=== PATIENT | male | born 1950 | race Caucasian/White ===

== ENCOUNTER 2020-03-05 12:19 | Emergency (ER) | payer OTHER ==
[~2020-03-05] VITALS: Ht 160 cm; Wt 63.5 kg
[~2020-03-05 12:19] MED LIST: ASPIRIN81 M2 PO; COUMADIN 2 MG TA2 M1 PO; DILTIAZEM 24HR240 M1 PO; LANOXIN 0.120.125 M2 PO; LEVAQUIN 750 M750 MG PO; MULTIVITAMINS1 EAC7 PO; PREDNISONE 10 M10 M1 PO; PROAIR HFA8.5 GM IH; SYMBICORT160 MCG/4. INH; VITAMIN D1000 UNI1 PO; ZPAK PO
[2020-03-05 14:00] VITALS: BP 135/70
== END 2020-03-05 14:05 | disposition home or self-care (01) ==
LOC: M.ERS 12:19
DX: S61.012A Laceration without foreign body of left thumb without damage to nail, initial encounter (principal); J45.909 Unspecified asthma, uncomplicated; W26.8XXA Contact with other sharp object(s), not elsewhere classified, initial encounter; Y93.89 Activity, other specified; Y92.89 Other specified places as the place of occurrence of the external cause; Y99.8 Other external cause status

== ENCOUNTER 2020-05-15 09:43 | Observation (INO) | payer OTHER ==
[~2020-05-15] VITALS: Ht 157.5 cm; Wt 62.6 kg
[2020-05-15] VITALS (28 sets, daily range): BP systolic 92–143; BP diastolic 55–94
--- NOTE | ~2020-05-15 | EKG ---
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
[~2020-05-15 09:43] MED LIST changes: +ASPIRIN EC81 M1 PO; -ASPIRIN81 M2 PO
[2020-05-15 11:14] LABS: HEMATOCRIT 53.3 % (42.0-52.0); HEMOGLOBIN 18.8 gm/dL (14.0-18.0); MCHC 35.2 g/dL (28.0-37.0); MCV 99.3 fL (80.0-100.0); MPV 8.5 fl. (7.2-11.1); RBC 5.37 mil/uL (4.50-6.00); RDW-CV 14.2 % (10.5-14.5); WBC 8.2 thou/uL (4.0-11.0)
[2020-05-15 11:20] LABS: ANION GAP 12 mmol/L (7-16); BUN 3 mg/dL (7-18); CHLORIDE 100 mmol/L (98-107); CO2 26 mmol/L (21-32); CREATININE 0.7 mg/dL (0.6-1.3); GLUCOSE 82 mg/dL (70-99); POTASSIUM 4.3 mmol/L (3.5-5.1); SODIUM 138 mmol/L (136-145)
[2020-05-15 11:24] LABS: ALBUMIN 3.2 g/dL (3.4-5.0); ALKALINE PHOSPHATASE 127 U/L (46-116); CHOLESTEROL 170 mg/dL (<200); HDL CHOLESTEROL 107 mg/dL (>40); LDL CHOLESTEROL 52 mg/dL (<100); SGOT 26 U/L (15-37); SGPT 28 U/L (30-65); TC:HDL 1.6 Ratio (Not establshd); TOTAL BILIRUBIN 0.7 mg/dL (<0.1-1.0); TOTAL PROTEIN 6.4 g/dL (6.4-8.2); TRIGLYCERIDE 57 mg/dL (<150); VLDL 11 mg/dL (<40)
[2020-05-15 11:28] LABS: SERUM ASSESSMENT Clear
[2020-05-15] MEDS ORDERED: WIXELA 250-501 EACH INH (13:22)
[2020-05-15] MEDS ORDERED: DILTIAZEM ER300 M1 PO (13:29)
[2020-05-15] MEDS ORDERED: XARELTO20 MG PO (13:30)
--- NOTE | 2020-05-15 13:31 | TEE ---
[place] [address] TRANSESOPHAGEAL ECHOCARDIOGRAM Name: TRAVIS JOHNSON rDea Room: [address] FaustoBruce.#: [id number] Admission: 05/15/20 Attend Phys: Rogelio Marin MD Discharge: Date of : 54 Date of Service: 05/15/20 1330 Report #: [id number] THIS REPORT FOR: cc: Mariana Almeida MD, Tuongvan T. MD Blick, David R. MD [facility] ~ APPROVED REPORT Study performed: 05/15/2020 10:18:09 EXAM: Transesophageal Echocardiogram Patient Location: Out-Patient Status: routine BSA: 1.59 HR: 143 bpm BP: 120/83 mmHg Rhythm: Atrial Fibrillation Other Information Study Quality: Good Indications Atrial Fibrillation Echo Enhancing Agent Indication: Rule out Shunt Agent(s) / Amount(s) Used: Agitated Saline 20 cc Procedure After obtaining informed consent, patient underwent transesophageal echo in the [facility]. Type of Sedation : Conscious Sedation Sedation was administered by Maddie Johnston RN. Sedation start time: 1115 Case end Time: 1145 Sedation was achieved intravenously with: Versed (14) Fentanyl (125) Transesophageal probe was inserted and advanced into esophagus without difficulty by Rogelio Marin MD, FACC. Echo enhancement indication: R/O Septal defect. Echo enhancement agent administered: Agitated Saline The SANCHEZ was performed without complications. Synchronized Cardioversion attempted: Successful Synchronized Cardioversion acheived with 200 Joules after 1 attempt(s). [place] [address] TRANSESOPHAGEAL ECHOCARDIOGRAM Name: ELIZABETHXENIALAVINIA Shepard [address]#: [id number] Admission: 05/15/20 Attend Phys: Rogelio Marin MD Discharge: Date of : 54 Date of Service: 05/15/20 1330 Report #: [id number] Rhythm following Synchronized Cardioversion: Normal Sinus Rhythm Throughout the procedure, the blood pressure, pulse oximetry, cardiac rhythm, and rate were monitored. The patient tolerated the procedure without adverse effects. Recovery from conscious sedation was uneventful and vital signs were stable. Left Ventricle The left ventricle is normal size. There is normal LV segmental wall motion. There is normal left ventricular wall thickness. No ventricular septal defect. Left ventricular systolic function is normal. The left ventricular ejection fraction is within the normal range. LVEF is 60-65%. Right Ventricle The right ventricle is normal size. The right ventricular systolic function is normal. Atria The left atrium size is normal. No thrombus is visualized in the left atrium or appendage. Injection of bubbles documented no interatrial shunt. The right atrium size is normal. Aortic Valve The aortic valve is normal in structure. Trace aortic regurgitation. There is no aortic valvular stenosis. Mitral Valve The mitral valve is normal in structure. Mild mitral regurgitation. No evidence of mitral valve stenosis. Tricuspid Valve The tricuspid valve is normal in structure. Mild tricuspid regurgitation. Pulmonic Valve The pulmonary valve is normal in structure. There is no pulmonic valvular regurgitation. Great Vessels The aortic root is normal in size. Atherosclerotic plaque is present in the ascending aorta. Pericardium There is no [place] [address] TRANSESOPHAGEAL ECHOCARDIOGRAM Name: TRAVIS JOHNSON Room: [address] Denys#: [id number] Admission: 05/15/20 Attend Phys: Rogelio Marin MD Discharge: Date of : 54 Date of Service: 05/15/201329 Report #: [id number] <Conclusion> LVEF is 60-65%. The left atrium size is normal. No thrombus is visualized in the left atrium or appendage. Mild mitral regurgitation. Injection of bubbles documented no interatrial shunt. successful cardioversion of atrial flutter to normal sinus rhythm <ELECTRONICALLY SIGNED> By: Rogelio Marin MD, [facility] 05/15/201329 29 1330 Rogelio Marin MD, FACC /INF
[2020-05-15] MEDS ORDERED: VITAMIN C1000 MG PO (13:33)
[2020-05-15] MEDS ORDERED: POTASSIUM99 M1 PO (13:35)
[2020-05-15] MEDS ORDERED: FLECAINIDE ACET50 M2 PO (13:38)
--- NOTE | 2020-05-15 14:16 | EKG ---
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1950 Requested By: Rogelio Marin Order Number: [id number] Reading MD: Rogelio Marin Measurements Intervals [place] Rate: 129 P: [place]: QRS: 92 QRSD: 95 T: 76 QT: 329 QTc: 482 Interpretive Statements Atrial flutter Right axis deviation Borderline prolonged QT interval Compared to ECG 09/13/2012 07:28:03 Right-axis deviation now present alutter now seen Electronically Signed On 05-15-2020 14:16:30 JUNIOR ASSISTANT MANAGER by Rogelio Marin [email or web address] <ELECTRONICALLY SIGNED> By: Rogelio Marin MD, FAC 05/15/20 1416 1031 1031 Rogelio Marin MD, [facility] /EPI
[2020-05-16 00:04] VITALS: BP 126/70
[2020-05-16 04:41] VITALS: BP 122/72
[2020-05-16 08:00] VITALS: BP 143/79
[2020-05-16 12:00] VITALS: BP 143/96
[2020-05-16 13:06] VITALS: BP 143/96
--- NOTE | 2020-05-17 11:49 | D ---
[facility] [address] [place] [address] DISCHARGE SUMMARY Name: TRAVIS JOHNSON Room: [address] Guillermo Mcfarlane#: [id number] Admission: 05/15/20 Attend Phys: Rogelio Marin MD, F Discharge: 05/16/20 Date of : 54 Report #: [id number] THIS REPORT FOR: cc: Mariana Almeida MD, Tuongvan T. MD ~ Roeglio Marin MD [facility] DATE OF SERVICE: 05/16/2020 DISCHARGE DIAGNOSES: 1. Atrial flutter. 2. Previous tobacco abuse. CONSULTANTS: None. PROCEDURES: 1. Transesophageal echocardiogram. 2. Direct current cardioversion of atrial flutter. HISTORY OF PRESENT ILLNESS: The patient is a 70-year-old white male who was brought to the outpatient department to undergo electrical cardioversion. The patient apparently had a previous history of atrial fibrillation in 2012 when he presented with pneumonia. He converted to sinus rhythm, placed on diltiazem. Previous nuclear stress test showed no ischemia. Recently, he went in for routine followup and was noted to be in atrial flutter with 2:1 ventricular response rate. He denies any significant lightheadedness, palpitations, chest pain, shortness of breath, fever. I saw him in the office in 05/09 and recommended he start Xarelto for anticoagulation and flecainide in effort to cardiovert the patient. He was electively admitted on 05/15 for SANCHEZ and cardioversion. He denies recent fever or swelling. PAST MEDICAL HISTORY: Otherwise significant for tonsillectomy. No history of hypertension, diabetes, hyperlipidemia, previous carotid Doppler study showed less than 50% stenosis. MEDICATIONS: On admission include albuterol inhaler as needed for asthma, aspirin was recently stopped, diltiazem CD 300 mg a day, Flonase nasal spray as needed. ALLERGIES: He had no known drug allergies. PHYSICAL EXAMINATION: VITAL SIGNS: On admission, his blood pressure is 120/80, pulse is 140 and irregular. CHEST: Clear to auscultation. CARDIOVASCULAR: Regular, [place] [address] DISCHARGE SUMMARY Name: TRAVIS JOHNSON Drea [address]: [address]#: [id number] Admission: 05/15/20 Attend Phys: Rogelio Marin MD, F Discharge: 05/16/20 Date of : 54 Report #: [id number] ABDOMEN: Soft. EXTREMITIES: Had no edema. SKIN: Cool and dry. IMAGING: His workup on admission, he had a portable chest x-ray showed normal heart size, clear lung gusman. LABORATORY DATA: Sodium 138, creatinine 0.7. Liver function studies were normal. His cholesterol 170, triglycerides 57, HDL of 107, LDL 52. TSH 2.3, T4 of 0.8. White blood cell count 8.2, hemoglobin 18.8. HOSPITAL COURSE: The patient was brought to the cardiac catheterization lab. The patient had taken his dose of flecainide on the day of presentation. The night before he had taken his Xarelto. I performed a SANCHEZ that showed normal left ventricular chamber size and wall motion. There was no evidence of shunt. There was no evidence of thrombus. There is mild mitral and tricuspid regurgitation. I then performed electrical cardioversion with 200 joules. He converted to sinus rhythm. He tolerated the procedure well. The patient was transferred to a monitored bed watched overnight. During the night, the patient actually went into an episode of rapid atrial fibrillation that responded to a dose of IV digoxin. He began to ambulate with no further chest pain, shortness of breath, palpitations or bleeding. At the time of discharge, the patient had a blood pressure of 130/70, pulse is 70, he was afebrile. ECG the following day showed a sinus rhythm with no QT prolongation. The patient was discharged on his home medications including diltiazem CD 300 mg a day. Because of recurrent atrial arrhythmias, the flecainide was increased to 100 mg twice a day. He was continued Xarelto 20 mg with dinner. He was discharged to return to care of Dr. Almeida for routine medical care. He was felt to have a good prognosis from cardiac standpoint. He is scheduled to return to see my nurse practitioner in the Cardiology Clinic in 1 week on 05/23/2020. He was to contact my office if he had recurrent palpitations, lightheadedness or bleeding. I plan on seeing him in Cardiology Clinic in 8 weeks. <ELECTRONICALLY SIGNED> By: Rogelio Marin MD, [facility] 05/17/20 1149 1301 1321Davidrea Marin MD, FAC /nt
== END 2020-05-16 14:10 | disposition home or self-care (01) ==
LOC: M.CL 09:43 → M.2W 12:44 → M.TBA-CV 12:44 → M.2W 14:13
PROVIDERS: ADMIT Internal Medicine Cardiovascular Disease; ATTEND Internal Medicine Cardiovascular Disease
DX: I48.92 Unspecified atrial flutter (principal); I48.91 Unspecified atrial fibrillation; J45.909 Unspecified asthma, uncomplicated; Z79.82 Long term (current) use of aspirin; Z79.51 Long term (current) use of inhaled steroids; Z79.01 Long term (current) use of anticoagulants; Z87.891 Personal history of nicotine dependence

== ENCOUNTER 2020-05-30 05:31 | Inpatient (IN) | payer OTHER ==
[~2020-05-30] VITALS: Ht 160 cm; Wt 63.5 kg
[~2020-05-30 05:31] MED LIST changes: +DILTIAZEM ER300 M1 PO; +FLECAINIDE ACET50 M2 PO; +POTASSIUM99 M1 PO; +VITAMIN C1000 MG PO; +WIXELA 250-501 EACH INH; +XARELTO20 MG PO
[2020-05-30 11:00] VITALS: BP 128/91
--- NOTE | 2020-05-30 11:00 | NUR ---
PT ADMITTED TO ROOM 226 A DIRECT ADMISSION FROM CARDIOLOGY. PT SEEN FOR FOLLOW UP IN OFFICE POST CARDIOVERSION. EKG SHOWED AFLUTTER WITHOUT SYMPTOMS. PT IS ALERT AND ABLE TO ANSWER QUESTIONS. HR ELEVATED UPON VS CHECK. EKG COMPLETED. PT GIVEN FIRST SOTALOL DOSE. PT EDUCATED ON PLAN OF CARE,TREAMENTS,MEDICATIONS,DIET AND PROCEDURES. ASSESSMENT CHARTED. NOTHING FURTHER AT THIS TIME.[email or web address]
[2020-05-30 11:27] LABS: HEMATOCRIT 52.3 % (42.0-52.0); HEMOGLOBIN 18.1 gm/dL (14.0-18.0); MCH 34.4 pg (26.0-34.0); MCHC 34.6 g/dL (28.0-37.0); MCV 99.4 fL (80.0-100.0); MPV 8.4 fl. (7.2-11.1); RBC 5.26 mil/uL (4.50-6.00); RDW-CV 13.6 % (10.5-14.5); WBC 7.7 thou/uL (4.0-11.0)
[2020-05-30 12:05] LABS: CALCIUM 9.2 mg/dL (8.5-10.1); CREATININE 0.7 mg/dL (0.6-1.3)
--- NOTE | 2020-05-30 14:03 | EKG ---
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1950 Requested By: Rogelio Marin Order Number: [id number] Reading MD: Elijah Emery Measurements Intervals [place] Rate: 148 P: NE: QRS: 87 QRSD: 148 T: 269 QT: 353 QTc: 555 Interpretive Statements Atrial flutter with 2:1 AV block IVCD, consider atypical RBBB Consider left ventricular hypertrophy Compared to ECG 05/16/2020 09:06:17 2:1 AV block now present Sinus rhythm no longer present T-wave abnormality no longer present Electronically Signed On 05-30-2020 14:03:03 FIELD RECORDER by Elijah Emery [email or web address] <ELECTRONICALLY SIGNED> By: Elijah Emery MD, [facility] 05/30/20 1403 1148 1148 Elijah Emery MD, [facility] /EPI
[2020-05-30 16:45] VITALS: BP 106/72
[2020-05-30 21:00] VITALS: BP 101/70
[2020-05-31] VITALS (7 sets, daily range): BP systolic 85–119; BP diastolic 49–83
--- NOTE | 2020-05-31 05:25 | NUR ---
No acute event this shift. Pt denies pain. VS stable. Meds given per jul. Pt tracing A flutter on tele until 424 pt converted to Sinus rhythm. NPO midnight. Call light within reach, Will continue POC.
--- NOTE | 2020-05-31 09:23 | NUR ---
CM SPOKE TO THE PT TO DISCUSS CM ASSESSMENT. PT A&O, INDEPENDENT WITH ADL'S, AND DRIVES. PT USES 0 DME. PT HAS 0 HX OF HH OR SNF. NO CM D/C PLANNING NEEDS ANTICIAPTED. CM WILL REMAIN AVAILABLE TO ASSIST AND FOLLOW NEEDED.
--- NOTE | 2020-05-31 14:43 | EKG ---
[place] [address] ELECTROCARDIOGRAM REPORT Name: TRAVIS JOHNSON Room: [address] IN [facility].#: [id number] Admission: 05/30/20 Attend Phys: Rogelio Marin MD Discharge: Date of : 54 Date of Service: 05/31/20811 Report #: [id number] THIS REPORT FOR: //name// [facility] Test Date: 2020-05-31 Test Time: 08:12:29 Pat Name: TRAVIS JOHNSON Department: Room: [facility] Gender: M Gas Brazer: ATHOMPSONBlessing : 1950 Requested By: Rogelio Marin Order Number: [id number] Reading MD: Rogelio Marin Measurements Intervals [place] Rate: 66 P: 82 [place]: 175 QRS: 91 QRSD: 90 T: 89 QT: 379 QTc: 398 Interpretive Statements Sinus rhythm Supraventricular bigeminy Probable left atrial enlargement Right axis deviation Nonspecific T abnormalities, lateral leads Compared to ECG 05/30/2020 11:48:35 Atrial flutter no longer present Electronically Signed On 05-31-2020 14:43:22 DENTAL TECHNICIAN METAL by Rogelio Marin [email or web address] <ELECTRONICALLY SIGNED> By: Rogelio Marin MD, [facility] 05/31/20 1443 1 1 Rogelio Marin MD, [facility] /EPI
--- NOTE | 2020-05-31 16:34 | NUR ---
PT IS ALERT AND ORIENTEDX4 UP AD LAKESHIA BLOOD PRESSURE SOFT AT TIMES PLAN FOR STRESS TEST IN AM NPO AFTER MIDNIGHT TROPS BEING DRAWN NEGATIVE THUS FAR NO PAIN AT THIS TIME NO CONCERNS LSCTA BSX4 BM TODAY CALL LIGHT IN REACH
[2020-06-01 04:00] VITALS: BP 116/65
--- NOTE | 2020-06-01 08:00 | NUR ---
Alert and oriented x 4. Vitals are stable. Monitor rhythym is SR with PAC's. He is up independently in room. Roomair sat 97%. New IV started in L forearm. He has slept well.
[2020-06-01] MEDS ORDERED: SORINE 80 MG TA80 M1 PO (08:18)
--- NOTE | 2020-06-01 11:29 | NUR ---
CM INFORMED DURING PRIME ROUNDING OF THE PLAN OF CARE FOR THE PT. PLAN FOR THE PT TO HAVE STRESS TEST TODAY. PLAN FOR PT TO D/C PENDING STRESS TEST RESULTS. NO CM D/C PLANNING NEEDS ANTICIPATED. CM WILL REMAIN AVAILABLE TO ASSIST AND FOLLOW NEEDED.
[2020-06-01 11:32] VITALS: BP 116/65
--- NOTE | 2020-06-01 12:18 | D ---
[facility] [address] [place] [address] DISCHARGE SUMMARY Name: TRAVIS JOHNSON Drea Room: [address] IN .Bruce.#: [id number] Admission: 05/30/20 Attend Phys: Rogelio Marin MD, F Discharge: Date of : 54 Report #: [id number] THIS REPORT FOR: cc: Mariana Almeida MD, Tuongvan T. MD ~ Rogelio Marin MD [facility] DATE OF SERVICE: 06/01/2020 DISCHARGE DIAGNOSIS: Atrial flutter. CONSULTANTS: None. PROCEDURES: None. HISTORY OF PRESENT ILLNESS: The patient is a 70-year-old white male who was admitted after he was found to be in atrial flutter. The patient had a history of atrial fibrillation, dating back to 2012 when he presented with pneumonia. He apparently converted to sinus rhythm spontaneously and was seen by Dr. Fournier. He was placed on diltiazem, which he has taken since that time. Nuclear stress test 2012 showed no ischemia. Recently, he went in for routine followup, is found to be back in atrial flutter. I saw him in the office and he was started on Xarelto for anticoagulation and flecainide ____ convert the patient. He was then electively admitted on 05/15/2020 and underwent SANCHEZ and cardioverted. Echocardiogram showed normal left ventricular function. He was cardioverted electrically back to sinus rhythm and he was sent home on Xarelto 20 mg a day, diltiazem CD 300 mg a day and flecainide 50 mg twice a day, Flonase nasal spray as needed and albuterol p.r.n. for his previous history of asthma. He then had carotid Doppler study that showed mild stenosis, which was unchanged from previous study. He then returned to see my nurse practitioner 05/23/2020. He was found to be back in atrial flutter. He was taken off the flecainide and admitted for attempts at cardioversion. PAST MEDICAL HISTORY: Significant for tonsillectomy. He had no history of hypertension, diabetes or hyperlipidemia. MEDICATIONS: Include albuterol, Flonase, Xarelto, diltiazem and flecainide recently discontinued. ALLERGIES: He had no known drug allergies. PHYSICAL EXAMINATION: VITAL SIGNS: On admission, his blood pressure was 110/70, pulse is 140 and he is afebrile. HEENT: He is anicteric. Conjunctivae pink. Mucous membranes are moist. CHEST: [place] [address] DISCHARGE SUMMARY Name: JOHNSONTRAVIS Room: [address]#: [id number] Admission: 05/30/20 Attend Phys: Rogelio Marin MD, F Discharge: Date of : 54 Report #: [id number] CARDIOVASCULAR: Regular, tachycardia. ABDOMEN: Soft. EXTREMITIES: Had no edema. DIAGNOSTIC STUDIES: ECG on admission showed atrial flutter with 2:1 ventricular response, rate of 150 beats per minute. HOSPITAL COURSE: On the first hospital day, he was started on sotalol 80 mg every 12 hours in addition to Xarelto. Because of low blood pressure, he was taken off diltiazem. That night, he actually converted back to sinus rhythm. He had no further recurrent atrial flutter, bleeding, shortness of breath or lightheadedness. He remained in sinus rhythm. Followup ECG showed no QT prolongation. Prior to discharge, he did undergo Lexiscan Cardiolite to rule out ischemia. He was discharged to return to the care of Dr. Almeida for routine medical care. I plan on seeing him in Cardiology Clinic in 1 month for followup. If he had recurrent palpitations, was to contact my office. At the time of discharge, his heart rate was 70, blood pressure 110/60 and he is afebrile. He had no complaints. He was discharged to continue ProAir as needed and albuterol p.r.n. He was taken off diltiazem and flecainide. He was to continue Xarelto 20 mg with dinner and he was started on sotalol 80 mg twice a day. At the time of discharge, he had no further complaints. I plan on seeing him back in Cardiology Clinic in 6 weeks for followup. He was to contact my office if he notices any lightheadedness. He was felt to have a good prognosis from cardiac standpoint. The results of the nuclear stress test will be discussed with the patient. He was also given a referral to see Dr. Juan Ortega in EP Clinic for consideration of radiofrequency ablation. <ELECTRONICALLY SIGNED> By: Rogelio Marin MD, [facility] 06/01/20 1218 0838 0848Davidrea Marin MD, FAC /nt
--- NOTE | 2020-06-01 13:38 | EKG ---
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: : 1950 Requested By: Rogelio Marin Order Number: [id number] Reading MD: Rogelio Marin Measurements Intervals [place] Rate: 69 P: 85 [place]: 171 QRS: 89 QRSD: 94 T: 78 QT: 420 QTc: 450 Interpretive Statements Sinus rhythm Atrial premature complexes Probable left atrial enlargement Borderline right axis deviation Compared to ECG 05/31/2020 08:12:29 no change Electronically Signed On 06-01-2020 13:38:20 MEDICAL SOCIAL CONSULTANT by Rogelio Marin [email or web address] <ELECTRONICALLY SIGNED> By: Rogelio Marin MD, [facility] 06/01/20 1338 0959 0959 Rogelio Marin MD, [facility] /EPI
--- NOTE | 2020-06-01 14:18 | CARDNUC ---
[place] [address] CARDIAC NUCLEAR IMAGING REPORT Name: TRAVIS JOHNSON Room: [address]#: [id number] Admission: 05/30/20 Attend Phys: Rogelio Marin MD Discharge: 06/01/20 Date of : 54 Date of Service: 06/01/20 1418 Report #: [id number] THIS REPORT FOR: cc: Mariana Almeida MD, Tuongvan T. MD Liston, Michael J. MD [facility] ~ APPROVED REPORT Imaging Protocol: Stress Tc-99m/Rest Tc-99m 1 day Study performed: 05/31/2020 08:34:00 Indication: Atrial Fibrillation Patient Location: In-Patient Stress Tech: Coreen Trammell Stress Nurse: Beatriz Gillis RN Ht: 5 ft 3 in Wt: 140 lbs BSA: 1.66 m2 BMI: 24.79 Medical History Medical History: Arrhythmia, HTN Medications: sotalol, rivaroxabban Allergies: No known drug allergies Cardiac Risk Factors: Age, FHX of CAD, HTN, Tobacco History (Former) Exercise History: Indeterminate Resting Data Rest SPECT myocardial perfusion imaging was performed in supine position 30 minutes following the intravenous injection of 9.9 mCi of Tc-99m Sestamibi. Time of rest injection: 08:00 The images were gated to evaluate regional wall motion and calculate left ventricular ejection fraction. Administration Route: IV Administration Site: Left Arm Pharmacologic Stress Pharmacologic stress test was performed by injecting Regadenoson 0.4 mg IV push over 10-15 seconds immediately followed by the intravenous injection of 32.5 mCi of Tc-99m Sestamibi. Time of stress injection: 09:45 Administration Route: IV Administration Site: [place] [address] CARDIAC NUCLEAR IMAGING REPORT Name: TRAVIS JOHNSON Room: [address]#: [id number] Admission: 05/30/20 Attend Phys: Rogelio Marin MD Discharge: 06/01/20 Date of : 54 Date of Service: 06/01/20 1418 Report #: [id number] Heart Rate at time of stress injection: 85 bpm. Gated Stress SPECT was performed 40 minutes after stress injection. The images were gated to evaluate regional wall motion and calculate left ventricular ejection fraction. Prone imaging was performed. Stress Test Details Stress Test: Pharmacologic stress testing performed using 0.4 mg of regadenoson per 5 mL given IV over 10 seconds. Reason for pharmacologic stress test: on sotalol. HR Max Heart Rate (APMHR): 152 bpm Resting HR: 66 bpm Target HR (85% APMHR): 129 bpm Max HR Achieved: 85 bpm % of APMHR: 55 Recovery HR: 82 bpm BP Resting BP: 117/79 mmHg Max BP: 131/78 mmHg Recovery BP: 105/72 mmHg ECG Resting ECG: Sinus Rhythm Stress ECG: Sinus Rhythm ST Change: None Arrhythmia: None Recovery ECG: Sinus Rhythm Recovery ST Change: None Recovery Arrhythmia: None Clinical Reason for Termination: Completed protocol The patient tolerated Lexiscan infusion without significant cardiac symptoms. Stress ECG Conclusion The baseline twelve-lead EKG shows sinus rhythm without significant ST segment or T wave abnormality. EKGs obtained during and post Lexiscan infusion show sinus rhythm with no significant ST segment or T wave changes when compared to baseline. There were no stress-induced arrhythmias. Study Quality Study: Good Artifact: [place] [address] CARDIAC NUCLEAR IMAGING REPORT Name: TRAVIS JOHNSON Room: [address]#: [id number] Admission: 05/30/20 Attend Phys: Rogelio Marin MD Discharge: 06/01/20 Date of : 54 Date of Service: 06/01/20 1418 Report #: [id number] Lung Uptake: Normal Study Data At rest, the left ventricular ejection fraction was 51%.. Post stress, the left ventricular ejection was 41%.. Perfusion There is a small in size severe in intensity fixed defect of the apex representing prior infarct. Additionally there is large region of moderate photopenia involving the basal to apical anterior and anteroseptal wall consistent with ischemia. Wall Motion Global LV systolic function it appears preserved with an anteroseptal/apical wall motion abnormality. Nuclear Conclusion ECG Findings: negative for ischemia Clinical Findings: negative for ischemia Nuclear Findings: positive for ischemia Exercise Capacity: not assessed Left Ventricular Function: abnormal Risk Study: high Perfusion images suggest prior apical infarct with a large region of ischemia involving the anterior and anteroseptal wall. LV systolic function is mildly decreased with wall motion abnormalities as outlined above. This is a high risk study. <Conclusion> The baseline twelve-lead EKG shows sinus rhythm without significant ST segment or T wave abnormality. EKGs obtained during and post Lexiscan infusion show sinus rhythm with no significant ST segment or T wave changes when compared to baseline. There were no stress-induced arrhythmias. <ELECTRONICALLY SIGNED> By: Elijah Emery MD, FACC 06/01/20 1418 1418 1418 Elijah Emery MD, FACC /INF
--- NOTE | 2020-06-01 14:52 | NUR ---
Spoke with the patient by phone to clarify that with atrial fib ablation the patient does not get a permanent pacemaker. The patient stated he understood the information given.
== END 2020-06-01 13:20 | disposition home or self-care (01) | DRG 309 ==
LOC: M.2W 05:31 → M.TBA 09:03 → M.2W 09:03
PROVIDERS: ADMIT Internal Medicine Cardiovascular Disease; ATTEND Internal Medicine Cardiovascular Disease
DX: I48.92 Unspecified atrial flutter (principal); D68.59 Other primary thrombophilia; I10 Essential (primary) hypertension; E11.9 Type 2 diabetes mellitus without complications; E78.5 Hyperlipidemia, unspecified; I65.22 Occlusion and stenosis of left carotid artery; Z79.899 Other long term (current) drug therapy

== ENCOUNTER 2020-06-14 07:26 | Observation (INO) | payer OTHER ==
[~2020-06-14] VITALS: Ht 160 cm; Wt 63.5 kg
[2020-06-14] VITALS (16 sets, daily range): BP systolic 92–138; BP diastolic 57–79
[~2020-06-14 07:26] MED LIST changes: +SORINE 80 MG TA80 M1 PO
[2020-06-14 08:42] LABS: HEMATOCRIT 50.9 % (42.0-52.0); HEMOGLOBIN 17.4 gm/dL (14.0-18.0); MCH 33.4 pg (26.0-34.0); MCHC 34.3 g/dL (28.0-37.0); MCV 97.5 fL (80.0-100.0); MPV 9.2 fl. (7.2-11.1); RBC 5.22 mil/uL (4.50-6.00); RDW-CV 13.4 % (10.5-14.5); WBC 11.5 thou/uL (4.0-11.0)
[2020-06-14] MEDS ORDERED: ASA81BEC PO (08:48)
[2020-06-14 08:55] LABS: ANION GAP 9 mmol/L (7-16); BUN 8 mg/dL (7-18); CALCIUM 9.2 mg/dL (8.5-10.1); CHLORIDE 102 mmol/L (98-107); CO2 29 mmol/L (21-32); CREATININE 0.9 mg/dL (0.6-1.3); GLUCOSE 90 mg/dL (70-99); POTASSIUM 4.3 mmol/L (3.5-5.1); SODIUM 140 mmol/L (136-145)
[2020-06-14 08:58] LABS: APTT 26.7 Seconds (25.0-31.3); PROTIME 10.6 Seconds (9.20-11.50)
[2020-06-14 09:01] LABS: ALBUMIN 3.4 g/dL (3.4-5.0); ALKALINE PHOSPHATASE 108 U/L (46-116); CHOLESTEROL 218 mg/dL (<200); HDL CHOLESTEROL 70 mg/dL (>40); LDL CHOLESTEROL 127 mg/dL (<100); SGOT 23 U/L (15-37); SGPT 32 U/L (30-65); TC:HDL 3.1 Ratio (Not establshd); TOTAL BILIRUBIN 0.6 mg/dL (<0.1-1.0); TOTAL PROTEIN 6.9 g/dL (6.4-8.2); TRIGLYCERIDE 105 mg/dL (<150); VLDL 21 mg/dL (<40)
[2020-06-14 09:03] LABS: SERUM ASSESSMENT Clear
--- NOTE | 2020-06-14 11:36 | CARD ---
[facility] [address] [place] [address] CARDIAC CATH REPORT Name: TRAVIS JOHNSON Room: [address] Guillermo Mcfarlane#: [id number] Admission: 06/14/20 Attend Phys: Rogelio Marin MD, F Discharge: Date of : 54 Report #: [id number] THIS REPORT FOR: cc: Mariana Almeida MD, Tuongvan T. MD ~ Rogelio Marin MD [facility] APPROVED REPORT Study performed: 06/14/2020 09:45:23 Patient Details Patient Status: Out-Patient Room #: The patient is a 70 year-old male Event Personnel Maddie Johnston RN RN, Rogelio Marin Security Management Specialist, Jose J Hanna Haley, Angela Monitor Procedures Performed Art Access - R radial artery Left Heart Cath w/LT VGram [id number] [facility]CLV [address] w/wo Plasty Single LAD [id number] Indication Arrhythmia, Positive stress test Risk Factors Hypercholesterolemia Admission/Lab Medications/Medications given during procedure Glycoprotein IllbIlla Inhibitors, Heparin Unfract. Procedure Narrative The patient was brought electively to the Cardiac Catheterization Laboratory and was prepped and draped in a sterile manner. The right wrist was infiltrated with 2% Lidocaine subcutaneous anesthesia. A Slender Glidesheath sheath was inserted into the right radial artery. Coronary angiography was performed using coronary diagnostic catheters. The right coronary system was accessed and visualized with a Diagnostic catheter. The left coronary system was accessed and visualized with a Diagnostic catheter. The left ventricle was accessed and visualized with a Diagnostic catheter. Left ventricular/Aortic Valve gradient assessed via catheter pullback. Left ventriculogram was performed in [place] [address] CARDIAC CATH REPORT Name: TRAIVS JOHNSON Room: [address]#: [id number] Admission: 06/14/20 Attend Phys: Rogelio Marin MD, F Discharge: Date of : 54 Report #: [id number] was deployed with a 6 Fr Vasc-Band Reg 24cm. The patient tolerated the procedure well and there were no complications associated with the procedure. There was no hematoma. Intraoperative Conscious Sedation Sedation start time: 10:16 Case end Time: 10:49 Fentanyl 25 mcg Versed 2 mg Fluoro Time: 5.5 minutes Contrast Type and Amount: Omnipaque 150 ml Coronary Angiography The patient's coronary anatomy is right dominant. Diagnostic Cath Left Main 0% stenosis LAD 95% proximal stenosis. Distally filled by retrograde collaterals from the RCA Circumflex 0% stenosis Right Coronary 30% mid stenosis Ramus 0% stenosis Left Ventriculography The left ventricle is normal in size with normal contractility. The left ventricular ejection fraction is estimated to be 60-65%. Left ventricular wall motion abnormalities are not present. There is no mitral insufficiency. Hemodynamics The aortic pressure is 101/51 mmHg with a mean of 75 mmHg. The left ventricular pressure is 96/10 mmHg with a mean of mmHg. The left ventricular end diastolic pressure is 12 mmHg. There was no gradient across the aortic valve upon pullback. Pullback from the left ventricle to the aorta revealed no gradient across the aortic valve. PCI Technique Lesion Anticoagulation was achieved with Heparin. bolus of iv aggrastat given Percutaneous coronary intervention was performed on the proximal left anterior descending artery segment. The lesion stenosis prior to intervention was 95% with VARSHA 2 flow. A 6F XB LAD 3.5 Guide Catheter was used to engage the lm ostium. A IG: BMW 190cm Interventional Guidewire was [place] [address] CARDIAC CATH REPORT Name: JOHNSONXENIALAVINIA Shepard Room: [address] Denys#: [id number] Admission: 06/14/20 Attend Phys: Rogelio Marin MD, F Discharge: Date of : 54 Report #: [id number] BALLOON DILATION A Balloon catheter Euphora SC 2.5x6mm was inserted and inflated up to 6.00atm for 7seconds. Repeat angiography revealed the following post-dilatation results: 60% stenosis. Additional Inflation: 10.00atm for 9seconds. STENT DEPLOYMENT A drug-eluting stent Centerpoint RX Stent 2.5X12mm was inserted and inflated up to 11.00atm for 14seconds. Repeat angiography revealed the following post-stent deployment results: 0% stenosis. Additional Inflation: 13.00atm for 9seconds. Final angiography reveals 0 % stenosis with VARSHA 3 flow. Conclusion 1. 95% stenosis of the proximal LAD 2. successful placement of a drug eluting stent in the proximal LAD 3. LVEF 60-65% Recommendations Cardiac Rehabilitation Referral Aggressive Medical Therapy Medications Administered Clopidogrel <ELECTRONICALLY SIGNED> By: Rogelio Marin MD, [facility] 06/14/20 1136 1136 1136Rogelio Marin MD, [facility] /INF
--- NOTE | 2020-06-14 11:37 | EKG ---
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: JOSIE : 1950 Requested By: Rogelio Marin Order Number: [id number] Reading MD: Rogelio Marin Measurements Intervals [place] Rate: 52 P: 65 ID: 158 QRS: 79 QRSD: 90 T: 78 QT: 476 QTc: 443 Interpretive Statements Sinus bradycardia Probable left atrial enlargement Nonspecific T abnrm, anterolateral leads Compared to ECG 06/01/2020 09:59:25 Atrial premature complex(es) no longer present Electronically Signed On 06-14-2020 11:37:47 METAL FURRER by Rogelio Marin [email or web address] <ELECTRONICALLY SIGNED> By: Rogelio Marin MD, [facility] 06/14/20 1137 09 0900 Rogelio Marin MD, [facility] /EPI
--- NOTE | 2020-06-14 14:56 | H ---
[place] [address] HISTORY AND PHYSICAL Name: TRAVIS JOHNSON Room: [address] Denys#: [id number] Admission: 06/14/20 Attend Phys: Rogelio Marin MD, F Discharge: Date of : 54 Report #: [id number] THIS REPORT FOR: cc: Mariana Almeida MD, Tuongvan T. MD ~ Rogelio Marin MD [facility] DATE OF SERVICE: 06/14/2020 HISTORY OF PRESENT ILLNESS: The patient is a 70-year-old white male who was brought to the outpatient department to undergo cardiac catheterization. The patient actually presented for routine followup on 05/09/2020. He was found to be in atrial flutter with 2:1 ventricular response rate of 150 beats per minute. He was started on Xarelto and flecainide in the office. I admitted him to [facility] 5 days later and he underwent a SANCHEZ that showed ejection fraction of 60%, no thrombus, no shunt, mild mitral regurgitation. He was then cardioverted to sinus rhythm. He was kept overnight and discharged the following day. He has had no bleeding since that time. He returned to the Cardiology Clinic a week later to see the nurse practitioner. ECG at that time again showed he had recurrent atrial flutter at a rate limit of 130 beats per minute. He denied any chest pain, palpitations, lightheadedness, bleeding. Because of recurrent atrial flutter, he was then admitted to the hospital 2 weeks ago taken off of flecainide and switched to sotalol. He has done well since that time. Denies any lightheadedness, chest pain, fever, or cough. Because of recurrent atrial flutter, he underwent a Lexiscan Cardiolite here at [facility] on 05/31. This showed an apical defect at rest that was fixed consistent of previous apical infarction. In addition, there was a large area of ischemia involving the anterior septal wall consistent with ischemia. Ejection fraction 51%. Because of his markedly abnormal Cardiolite and history of arrhythmias, he is recommended to undergo cardiac catheterization. PAST MEDICAL HISTORY: Otherwise significant only for tonsillectomy. CURRENT MEDICATIONS: Include albuterol for asthma, sotalol 80 mg twice a day. He was on Xarelto that stopped 2 days ago. He now takes aspirin 81 mg a day. ALLERGIES: He has no known drug allergies. FAMILY HISTORY: His father had heart attack. SOCIAL HISTORY: He is . He and his live here in [place]. He is not working at this time. He quit smoking years ago, rarely drinks alcohol. REVIEW OF SYSTEMS: No history of stroke. He does have asthma. No history of liver disease, kidney disease, cancer, psychiatric illness, chronic skin condition. Previous carotid Doppler study showed less than 49% [place] [address] HISTORY AND PHYSICAL Name: XENIA JOHNSONLAVINIA Shepard Room: [address] Guillermo Mcfarlane#: [id number] Admission: 06/14/20 Attend Phys: Rogelio Marin MD, F Discharge: Date of : 54 Report #: [id number] 04/2020. Previous vascular screening showed normal ABIs. LABORATORY DATA: ECG monitor today shows a normal sinus rhythm. IMPRESSION AND RECOMMENDATIONS: 1. Recurrent atrial flutter. Appears to be remaining in sinus rhythm on sotalol. If recurrent, I would increase the dose of sotalol. I would continue chronic anticoagulation with Xarelto. 2. Abnormal nuclear stress test. Recommend cardiac catheterization. I discussed indications, alternatives and risks of the procedure and he agrees to proceed. 3. History of asthma. <ELECTRONICALLY SIGNED> By: Rogelio Marin MD, FACC 06/14/20 1456 0957 [id number] Marin MD, FACC /nt
--- NOTE | 2020-06-14 15:50 | NUR ---
PATIENT ARRIVED TO 223 PER CART FROM MICROCOMPUTER SUPPORT SPECIALIST. PATIENT IS ALERT AND ORIENTED X 4. CATH SITE IS INTACT AND WITHOUT HEMATOMA. PATIENT IS ON TELEMENTRY. TELE SHOWS SR SB. PATIENT ORIENTED TO ROOM. RADIAL STAT REMOVED AND DRESSING APPLIED. IV FLUIDS RESUMED. PATIENT MEDICATED FOR PAIN X 1. HE STATED PAIN WAS DECREASED.
--- NOTE | 2020-06-14 15:54 | EKG ---
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: JOSIE : 1950 Requested By: Rogelio Marin Order Number: [id number] Reading MD: Rogelio Marin Measurements Intervals [place] Rate: 58 P: 60 ME: 164 QRS: 77 QRSD: 91 T: 80 QT: 466 QTc: 458 Interpretive Statements Sinus rhythm Nonspecific T abnrm, anterolateral leads Compared to ECG 06/14/2020 09:00:12 Sinus bradycardia no longer present Electronically Signed On 06-14-2020 15:54:28 TAG AND LABEL CUTTER by Rogelio Marin [email or web address] <ELECTRONICALLY SIGNED> By: Rogelio Marin MD, FAC 06/14/20 1554 1148 1148 Rogelio Marin MD, [facility] /EPI
[2020-06-15] VITALS: BP 113/59
[2020-06-15 04:00] VITALS: BP 116/77
[2020-06-15 04:01] LABS: MCH 33.6 pg (26.0-34.0); MCHC 33.4 g/dL (28.0-37.0); MCV 100.5 fL (80.0-100.0); MPV 9.2 fl. (7.2-11.1); RBC 4.58 mil/uL (4.50-6.00); RDW-CV 13.6 % (10.5-14.5); WBC 6.9 thou/uL (4.0-11.0)
[2020-06-15 04:27] LABS: CALCIUM 8.5 mg/dL (8.5-10.1); CREATININE 0.8 mg/dL (0.6-1.3); TROPONIN-I LEVEL 0.13 ng/mL (<0.06)
[2020-06-15 04:31] LABS: HEMOGLOBIN 15.4 gm/dL (14.0-18.0)
[2020-06-15] MEDS ORDERED: PLAVIX 75 MG TA75 M1 PO (08:45)
[2020-06-15] MEDS ORDERED: LIPITOR 40 MG T40 M1 PO (08:45)
[2020-06-15] MEDS ORDERED: NITROGLYCERIN0.4 MG SUBLING (08:46)
--- NOTE | 2020-06-15 08:47 | NUR ---
PATIENT HAS RESTED WELL THROUGHOUT THE NIGHT. VSS ON RA. NO C/O PAIN. MEDICATIONS GIVEN ORDERED AND CHARTED. PATIENT SB ON TELE MONITOR. DRESSING TO RIGHT WRIST IS C/D/I AND NO BLEEDING NOTED. IV IN LEFT AC-SL. PATIENT UP AD-LAKESHIA AND STEADY. PATIENT INSTRUCTED TO USE CALL LIGHT WHEN NEEDING ASSISTANCE. HOURLY ROUNDS MADE. NURSING TO CONTINUE MONITORING.
[2020-06-15 09:00] VITALS: BP 120/74
[2020-06-15 10:17] VITALS: BP 116/77
--- NOTE | 2020-06-15 10:23 | NUR ---
CM SPOKE TO THE PT TO DISCUSS CM ASSESSMENT. PT A&O, INDEPENDENT WITH ADL'S, ACTIVE AND DRIVES. PT USES 0 DME. PT HAS 0 HX OF HH OR SNF. NO CM D/C PLANNING NEEDS ANTICIPATED. CM WILL REMAIN AVAILABLE TO ASSIST AND FOLLOW NEEDED.
--- NOTE | 2020-06-15 11:23 | EKG ---
[place] [address] ELECTROCARDIOGRAM REPORT Name: TRAVIS JOHNSON [address] [id number] Admission: 06/14/20 Attend Phys: Rogelio Marin MD Discharge: Date of : 54 Date of Service: 06/15/20 0854 Report #: [id number] THIS REPORT FOR: //name// [facility] Test Date: 2020-06-15 Test Time: 08:54:20 Pat Name: TRAVIS JOHNSON Department: Room: [address] Gender: M Brand Mgr: : 1950 Requested By: Rogelio Marin Order Number: [id number] Lawanda MD: Rogelio Marin Measurements Intervals [place] Rate: 58 P: 66 CA: 159 QRS: 80 QRSD: 91 T: 85 QT: 427 QTc: 420 Interpretive Statements Sinus rhythm Compared to ECG 06/14/2020 11:48:12 No significant changes Electronically Signed On 06-15-2020 11:23:41 CULINARY INTERN by Rogelio Marin [email or web address] <ELECTRONICALLY SIGNED> By: Rogelio Marin MD, [facility] 06/15/20 1123 0854 0854 Rogelio Marin MD, [facility] /EPI
[2020-06-15 11:33] VITALS: BP 116/77
[2020-06-15 12:10] VITALS: BP 120/70
--- NOTE | 2020-06-15 12:51 | D ---
[facility] [address] [place] [address] DISCHARGE SUMMARY Name: TRAVIS JOHNSON Drea Room: [address] Guillermo Mcfarlane#: [id number] Admission: 06/14/20 Attend Phys: Rogelio Marin MD, F Discharge: Date of : 54 Report #: [id number] THIS REPORT FOR: cc: Mariana Almeida MD, Tuongvan T. MD ~ Rogelio Marin MD [facility] DATE OF SERVICE: 06/15/2020 DISCHARGE DIAGNOSES: 1. Coronary artery disease. 2. Hyperlipidemia. 3. Atrial flutter. PROCEDURE: Left heart catheterization with placement of a single drug-eluting stent in the left anterior descending artery via the radial approach. HISTORY OF PRESENT ILLNESS: The patient is a 70-year-old white male who was brought to the outpatient department to undergo cardiac catheterization. The patient presented in April 2020 with atrial flutter. He was started on Xarelto and flecainide as an outpatient. He was admitted to [facility] on 05/15/2020 and underwent a SANCHEZ that showed normal left ventricular function, no thrombus. He was then cardioverted and sent home on flecainide and Xarelto. He returned to the office a week later and was noted to be back in atrial flutter. He was therefore admitted to [facility] on 05/31/2020 and switched from flecainide to sotalol. Fortunately, he converted to sinus rhythm. Because of recurrent atrial flutter, he underwent a Lexiscan Cardiolite as an outpatient at [facility] on 06/01/2020. This showed a defect at the apex that appeared fixed. There was a large area of reversible ischemia in the anteroseptal wall, ejection fraction 51%. Because of abnormal Cardiolite, it was recommended he be admitted for cardiac catheterization. PAST MEDICAL AND SURGICAL HISTORY: Significant for tonsillectomy. No history of hypertension, diabetes, hyperlipidemia. He did have a history of asthma and was a previous smoker. MEDICATIONS: His current medications consisted of Xarelto 20 mg a day which was stopped 2 days ago. He is now on sotalol 80 mg twice a day. He uses an albuterol inhaler as needed. ALLERGIES: He had no known drug allergies. PHYSICAL EXAMINATION: VITAL SIGNS: His blood pressure was 120/80, pulse was 70. CHEST: Clear to auscultation. CARDIAC: [place] [address] DISCHARGE SUMMARY Name: XENIA JOHNSONLAVINIA Shepard Room: [address]#: [id number] Admission: 06/14/20 Attend Phys: Rogelio Marin MD, F Discharge: Date of : 54 Report #: [id number] ABDOMEN: Soft. EXTREMITIES: Had no edema. IMAGING DATA: Previous screening showed mild carotid stenosis. Normal ABIs. No abdominal aneurysm. His EKG on admission showed sinus rhythm. LABORATORY DATA: Sodium was 140, potassium 4.0, fasting glucose 88. Liver function studies were normal. His cholesterol was 218, triglyceride 105, HDL 70, and LDL 127. Recent TSH was 2.3. His white blood cell count 8.2, hemoglobin 18.8. HOSPITAL COURSE: The patient was admitted to the Outpatient Department. I then performed a cardiac catheterization from the right radial artery. He was found to have normal left ventricular function. There was a 95% stenosis of the proximal LAD. He was then given heparin and Aggrastat and I placed a single drug-eluting stent in the proximal LAD. He tolerated the procedure well. He was then loaded with Plavix. Fortunately, he had no further chest pain, shortness of breath or arrhythmia following the procedure. There was no hematoma in the groin. He was discharged to continue his home medications and he was to take aspirin 81 mg a day because of the stent. He was to continue Xarelto 20 mg at dinner, starting on 06/16/2020. He was to continue sotalol 80 mg twice a day and he was started on Plavix 75 mg a day. He was also given a prescription for nitroglycerin to take as needed. At the time of discharge, he was ambulating and had no further complaints. Followup laboratory the next day showed that creatinine was 0.8. His troponin was only 0.13. His hemoglobin the next day was 15.4. ECG following the procedure showed sinus bradycardia with no QT prolongation. At the time of discharge, his blood pressure is 110/70s, pulse of 60s, afebrile. He was discharged to return to the care of Dr. Almeida for routine medical care. I plan on seeing him in Cardiology Clinic on 07/18/2020. He was felt to have a good prognosis from cardiac standpoint. He was to contact my office if he had recurrent shortness of breath, chest pain, palpitations or bleeding. I would recommend a repeat carotid Doppler study in 1 year. I did recommend he start an exercise program and maintain a low-fat diet. <ELECTRONICALLY SIGNED> By: Rogelio Marin MD, [facility] 06/15/20 1251 0837 [id number] Johnathan Marin MD, FACC /nt
== END 2020-06-15 12:25 | disposition home or self-care (01) ==
LOC: M.CL 07:26 → M.TBA-CV 11:12 → M.2W 14:08
PROVIDERS: ADMIT Internal Medicine Cardiovascular Disease; ATTEND Internal Medicine Cardiovascular Disease
DX: I25.10 Atherosclerotic heart disease of native coronary artery without angina pectoris (principal); I48.92 Unspecified atrial flutter; Z20.828 Contact with and (suspected) exposure to other viral communicable diseases; E78.5 Hyperlipidemia, unspecified; E11.9 Type 2 diabetes mellitus without complications; I10 Essential (primary) hypertension; J45.909 Unspecified asthma, uncomplicated; Z87.891 Personal history of nicotine dependence

== ENCOUNTER → 2020-07-05 | Outpatient (CLI) | payer OTHER ==
[~2020-07-05] MED LIST changes: +ASA81BEC PO; +LIPITOR 40 MG T40 M1 PO; +NITROGLYCERIN0.4 MG SUBLING; +PLAVIX 75 MG TA75 M1 PO
== END ==
LOC: M.LAB 10:04
PROVIDERS: ATTEND Internal Medicine Cardiovascular Disease
DX: Z01.812 Encounter for preprocedural laboratory examination (principal); Z20.822 Contact with and (suspected) exposure to COVID-19